=== PATIENT | female | born 1930 | race Caucasian/White ===

== ENCOUNTER 2021-07-07 09:03 | Inpatient (IN) | payer OTHER, MEDICARE ==
[~2021-07-07] VITALS: Ht 160 cm; Wt 44.5 kg
--- NOTE | ~2021-07-07 | EMS ---
[address] [address] EMS Patient Care Report Name: ELLE JOHN Room #: 170-8 [facility] IN M.R.#: [id number] Admission: 07/07/21 Attend Phys: Israel Anthony Discharge: 07/07/21 Date of : [birth year] Report #: [id number] THIS REPORT FOR: //name// Report Transmitted: 07/10/2021 14:55 EMS Care Summary [place], [place]/[facility] Incident [id number] @ 07/07/2021 08:22 Incident Location [address] [place] [address] Patient ELLE JOHN Female, 89 Years 1930 Patient Address [address] [place], [place] [id number] Patient History Dementia,Hyperlipidemia,Depression,Anxiety,Anemia, Patient Allergies No known allergies, Patient Medications Melatonin, Zyrtec, Donepezil, Lisinopril, Senna, Atorvastatin, Levothyroxine, Chief Complaint SYNCOPE Disposition Transported No Lights/[place] Dispatch Reason Unconscious/Fainting Transported To [facility] Narrative RESPONDED TO UNCONSCIOUS AT RESIDENTIAL. UPON ARRIVAL PT FOUND SITTING ON EDDGE OF BED ALERT AND ORIENTED TO BASELINE. [place] STAFF REPORT THEY WERE [facility] [address] [place] [address] EMS Patient Care Report Name: ELLE JOHN Room #: 170-8 [facility] IN M.R.#: [id number] Admission: 07/07/21 Attend Phys: Israel Ng Raj Discharge: 07/07/21 Date of : [birth year] Report #: [id number] ASSISTING PT TO GET DRESSED AND SUDDENLY SHE FAINTED. [place] STAFF LOWERED PT TO GROUND SO NO INJURIES. PT REPORTS FEELING WEAK BUT NO OTHER COMPLAINTS. PT ASSISTED TO COT AND SEATBELTS APPLIED. PT VITALS, 3 LEAD, 12 LEAD AND IV OBTAINED. 12 LEAD APPEARS SINUS CHRIS WITH NO ST ELEVATION/DEPRESSION. PT TRANSPORTED TO [facility] WITH NO CHANGES. PT TEAM LIFTED TO BED AND HANDRAILS UP. REPORT GIVEN TO NURSE. Initial Vitals @08:52P: 62,BP: 146/68, @08:43P: 46, @08:45P: 58,R: 16,GCS: 14,Glucose: 154,SpO2: 98,DC Suspected: false @08:46P: 56,R: 16,BP: 146/62,SpO2: 98, @08:42P: 55,R: 18,BP: 133/53,Pain: 0/10,SpO2: 99, Assessments @09:00MENTAL:Confused,Person Oriented,Event Oriented,SKIN:HEENT:Head/Face: No Abnormalities,Neck/Airway: No Abnormalities,LUNG SOUNDS:General: No Abnormalities,Left Upper: No Abnormalities,Right Upper: No Abnormalities,Left Lower: No Abnormalities,Right Lower: No Abnormalities,ABDOMEN:General: No Abnormalities,Left Upper: No Abnormalities,Right Upper: No Abnormalities,Left Lower: No Abnormalities,Right Lower: No Abnormalities,PELVIS//GI:No Abnormalities,EXTREMITIES:Right Arm: Weakness,Right Leg: Weakness,Left Leg: Weakness,Left Arm: Weakness,PULSE:Radial: 2+ Normal,NEURO: Impression Syncope / Fainting Procedures @08:45 12-Lead ECG Response: UnchangedSucceeded @08:46 IV Therapy - Saline Lock 5cc (20 ga) Site: Antecubital-Right Response: UnchangedSucceeded @08:36 ALS Assessment Response: UnchangedSucceeded @08:42 3-Lead ECG Response: UnchangedSucceeded Timeline 08:19,Call Received 08:19,Dispatch Notified 08:22,Dispatched 08:23,En Route 08:34,On Scene 08:36,At Patient 08:36,ALS Assessment,Response: UnchangedSucceeded, 08:42,3-Lead ECG,Response: UnchangedSucceeded, 08:42,BP: 133/53 M,PULSE: 55,RR: 18 R,SPO2: 99 Ox,ETCO2: ,BG: ,PAIN: 0,GCS: , 08:43,BP: / M,PULSE: 46,RR: R,SPO2: Ox,ETCO2: ,BG: ,PAIN: ,GCS: , [facility] [address] [place] [address] EMS Patient Care Report Name: ELLE JOHN Room #: 170-8 [facility] IN M.R.#: [id number] Admission: 07/07/21 Attend Phys: Israel Anthony Discharge: 07/07/21 Date of : [birth year] Report #: [id number] 08:45,12-Lead ECG,Response: UnchangedSucceeded, 08:45,BP: / M,PULSE: 58,RR: 16 R,SPO2: 98 Ox,ETCO2: ,B,PAIN: ,GCS: 14, 08:46,BP: 146/62 M,PULSE: 56,RR: 16 R,SPO2: 98 Ox,ETCO2: ,BG: ,PAIN: ,GCS: , 08:46,IV Therapy - Saline Lock 5cc 20 ga Site: Antecubital-Right,Response: UnchangedSucceeded, 08:48,Depart Scene 08:52,BP: 146/68 M,PULSE: 62,RR: R,SPO2: Ox,ETCO2: ,BG: ,PAIN: ,GCS: , 09:01,At Destination 09:15,Call Closed Disclaimer v1.1 Copyright 2020 [employer] This EMS Care Summary contains data elements from the applicable legal record (which may be displayed differently). It is designed to provide pertinent information for the following purposes: continuity of care, clinical quality, and state data reporting. The complete legal record is available to ED staff and administrators of the receiving hospital in [employer] Patient Tracker. All data is provided "as is."
[2021-07-07 09:05] VITALS: BP 153/51
[2021-07-07 09:33] LABS: BASOPHILS 1.3 % (0.0-2.0); EOSINOPHILS 6.5 % (0.0-3.0); HEMATOCRIT 36.4 % (37.0-47.0); HEMOGLOBIN 11.5 gm/dL (12.0-15.0); LYMPHOCYTES 25.7 % (24.0-44.0); MCH 27.1 pg (26.0-34.0); MCHC 31.5 g/dL (28.0-37.0); MONOCYTES 9.1 % (1.0-8.0); PLATELET COUNT 277 thou/uL (150-400); POLYS 57.4 % (36.0-66.0); RBC 4.23 mil/uL (4.20-5.00); RDW 17.2 % (10.5-14.5); WBC 8.7 thou/uL (4.0-11.0)
[2021-07-07 09:36] LABS: URINE BILIRUBIN NEGATIVE (Negative); URINE BLOOD 2+ (Negative); URINE CLARITY CLEAR; URINE COLOR YELLOW; URINE GLUCOSE-RANDOM* NEGATIVE (Negative); URINE KETONES NEGATIVE (Negative); URINE LEUKOCYTES-REFLEX NEGATIVE (Negative); URINE NITRITE-REFLEX NEGATIVE (Negative); URINE PROTEIN (DIPSTICK) 2+ (Negative); URINE SPECIFIC GRAVITY >= 1.030 (1.005-1.035); URINE UROBILINOGEN 0.2 E.U./dl (0.2-1.0)
[2021-07-07 09:54] LABS: CALCIUM 8.5 mg/dL (8.5-10.1); POTASSIUM 3.6 mmol/L (3.5-5.1)
[2021-07-07 10:03] LABS: ALBUMIN 2.8 g/dL (3.4-5.0); TOTAL BILIRUBIN 0.5 mg/dL (0.2-1.0); TOTAL PROTEIN 6.7 g/dL (6.4-8.2)
[2021-07-07 10:13] LABS: SQUAMOUS 4-10 Moderate /LPF (0-3)
[2021-07-07 10:24] LABS: URINE RBC 3-10 Few /HPF (NONE SEEN); URINE WBC-REFLEX 0-5 Rare /HPF (0-5)
[2021-07-07 10:25] LABS: HYALINE CASTS 0-3 Few /LPF (None Seen)
[2021-07-07 10:30] LABS: CRYSTALS None Seen /LPF (None Seen)
[2021-07-07] MEDS ORDERED: MACROBID 100 M100 M1 PO (12:17)
--- NOTE | 2021-07-07 15:41 | NUR ---
SPOKE WITH PTS DAUGHTER WITH UPDATE
--- NOTE | 2021-07-07 16:00 | NUR ---
SPOKE WITH NELSY AND UPDATED HIM THAT THE NEUROLOGIST SAID NO NEW STROKE AND THE PT IS WANTING TO GO HOME. 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 SHE STATES THE SISTER WILL BE PICKING HER UP.
[2021-07-07] MEDS ORDERED: LIPITOR 20 MG T20 M1 PO (16:16)
[2021-07-07] MEDS ORDERED: ASA81BEC PO (16:17)
[2021-07-07 16:33] VITALS: BP 171/59
--- NOTE | 2021-07-10 07:13 | EKG ---
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 07/10/21 0713 [id number] 7 Chad Underwood MD, FACC /EPI
== END 2021-07-07 16:18 | disposition home or self-care (01) | DRG 67 ==
LOC: ER 09:03 → EROBS 12:52
PROVIDERS: Emergency Medicine; ADMIT Hospitalist; ATTEND Hospitalist
DX: I65.21 Occlusion and stenosis of right carotid artery (principal); E43 Unspecified severe protein-calorie malnutrition; N39.0 Urinary tract infection, site not specified; I10 Essential (primary) hypertension; F03.90 Unspecified dementia, unspecified severity, without behavioral disturbance, psychotic disturbance, mood disturbance, and anxiety; Z20.822 Contact with and (suspected) exposure to COVID-19; E78.5 Hyperlipidemia, unspecified; Z79.82 Long term (current) use of aspirin; Z79.899 Other long term (current) drug therapy; Z86.73 Personal history of transient ischemic attack (TIA), and cerebral infarction without residual deficits